=== PATIENT | female | born 1940 | race Caucasian/White ===

== ENCOUNTER 2017-12-05 05:49 | Day surgery (SDC) | payer MEDICARE ==
[2017-12-04 09:47] VITALS: BP 143/75
[2017-12-04 10:00] LABS: BASOPHILS % (AUTO) 0.2 % (0.0-5.0); EOSINOPHILS % (AUTO) 1.7 % (0.0-8.0); LYMPHOCYTES % (AUTO) 16.2 % (21.0-51.0); MEAN CORPUSCULAR HEMOGLOBIN 27.7 pg (27.0-33.0); MEAN CORPUSCULAR HGB CONC 32.9 g/dL (32.0-36.0); MEAN CORPUSCULAR VOLUME 84.3 fL (79-99); MONOCYTES % (AUTO) 8.7 % (3.0-13.0); NEUTROPHILS % (AUTO) 73.2 % (40.0-77.0); PLATELET COUNT (AUTO) 223 K/uL (130-400); RED BLOOD CELL COUNT(AUTO) 4.86 MIL/uL (4.00-5.50); WHITE BLOOD COUNT (AUTO) 6.2 K/uL (4.8-10.8)
[2017-12-04 10:18] LABS: CREATININE 0.9 mg/dL (0.5-1.5); POTASSIUM 4.2 mmol/L (3.5-5.1)
[2017-12-04 10:35] LABS: INR 1.11 (0.85-1.15); PARTIAL THROMBOPLASTIN TIME 29.7 SEC (26.3-35.5); PROTHROMBIN TIME 11.6 SEC (9.6-11.6)
[2017-12-05] VITALS (10 sets, daily range): BP systolic 108–179; BP diastolic 53–74
[~2017-12-05] VITALS: Ht 154.9 cm; Wt 68.0 kg
[~2017-12-05 05:49] MED LIST: APIX5TAB PO; ASPI-555 PO; ATOR-2 PO; CHOL100040 PO; DOCU-116 PO; FAMO40TA7 PO; FLUT16H NASAL; FOLI0.4T2 PO; HYDR25TA PO; KRIL1CAP22 PO; METO50TA18 PO; MONT10TA21 PO; SPIR25TA4 PO; VIT1CAPS5 PO
[2017-12-05] MEDS ORDERED: LIDOCAINE HCL 1% MDV 50ML VIAL ONE (09:30)
[2017-12-05] MEDS ORDERED: MEPERIDINE-PF 25 MG/ML SYG ONE (09:55)
[2017-12-05] MEDS ORDERED: MIDAZOLAM HCL 1 MG/ML 2ML VIAL ONE ×3 (09:55→11:37)
[2017-12-05] MEDS ORDERED: ONDANSETRON HCL 4 MG/2 ML VIAL ONE (10:41)
[2017-12-05] MEDS ORDERED: FENTANYL CITRATE PF 50 MCG/1 ML 2ML VIAL ONE ×2 (10:42→11:37)
[2017-12-05] MEDS ORDERED: HYDRALAZINE HCL 20 MG/ML VIAL IV PRN (13:45)
== END 2017-12-05 15:30 | disposition home or self-care (01) ==
LOC: DAH 05:49
PROVIDERS: ATTEND Internal Medicine Cardiovascular Disease
DX: I48.3 Typical atrial flutter (principal); I21.3 ST elevation (STEMI) myocardial infarction of unspecified site; E78.5 Hyperlipidemia, unspecified; I10 Essential (primary) hypertension; J45.909 Unspecified asthma, uncomplicated; Z79.01 Long term (current) use of anticoagulants; Z95.5 Presence of coronary angioplasty implant and graft
CPT/HCPCS: 36415; 80048; 85025; 85610; 85730; 93613; 93621; 93653; A4606; A4649; C1730; C1732; C1893; C1894 ×2; J1644; J2250 ×3; J2405; J3010 ×2; J3490; 99152; 99153; J2175

== ENCOUNTER 2018-10-30 08:39 | Day surgery (SDC) | payer MEDICARE ==
[2018-10-28 09:51] VITALS: BP 166/61
[2018-10-28 09:51] LABS: BASOPHILS % (AUTO) 0.2 % (0.0-5.0); EOSINOPHILS % (AUTO) 1.6 % (0.0-8.0); HEMATOCRIT 41.7 % (36-48); LYMPHOCYTES % (AUTO) 14.9 % (21.0-51.0); MEAN CORPUSCULAR HEMOGLOBIN 28.9 pg (27.0-33.0); MEAN CORPUSCULAR HGB CONC 33.2 g/dL (32.0-36.0); MEAN CORPUSCULAR VOLUME 87.2 fL (79-99); MONOCYTES % (AUTO) 7.6 % (3.0-13.0); NEUTROPHILS % (AUTO) 75.7 % (40.0-77.0); NUCLEATED RED BLOOD CELLS 0.1 % (0.0-0.19); PLATELET COUNT (AUTO) 253 K/uL (130-400); RED BLOOD CELL COUNT(AUTO) 4.78 MIL/uL (4.00-5.50); RED CELL DISTRIBUTION WIDTH 13.5 % (11.0-15.5); WHITE BLOOD COUNT (AUTO) 7.2 K/uL (4.8-10.8)
[2018-10-28 09:51] LABS: APPEARANCE,URINE Clear (CLEAR); BILIRUBIN,URINE Negative (NEGATIVE); COLOR,URINE Yellow (YELLOW); GLUCOSE, URINE (UA) Negative (NEGATIVE); KETONES,URINE Trace mg/dL (NEGATIVE); LEUKOCYTE ESTERASE ,URINE Moderate (NEGATIVE); NITRATE,URINE Negative (NEGATIVE); OCCULT BLOOD,URINE Negative (NEGATIVE); PROTEIN,URINE Negative (NEGATIVE)
[2018-10-28 09:56] LABS: CREATININE 1.1 mg/dL (0.5-1.5); POTASSIUM 4.6 mmol/L (3.5-5.1)
[2018-10-28 10:01] LABS: BACTERIA,URINE Rare /HPF (None Seen); RBC,URINE 0-1 /HPF (0-1); SQUAMOUS EPITHELIAL CELL,UR Rare /HPF (0-2); WBC,URINE 0-1 /HPF (0-1)
[2018-10-28 10:02] LABS: MUCUS,URINE Rare LPF (None Seen)
[2018-10-28 10:08] LABS: INR 1.04 (0.85-1.15); PARTIAL THROMBOPLASTIN TIME 27.8 SEC (26.3-35.5); PROTHROMBIN TIME 10.9 SEC (9.6-11.6)
--- NOTE | 2018-10-29 09:55 | NUR ---
ABNORMAL URINALYSIS REPORTED TO CECILIA MONTENEGRO PT'S UA NITRATES NEGATIVE, ULEUKEST MODERATE. NO FURTHER ORDERS.
[2018-10-30] VITALS (11 sets, daily range): BP systolic 129–165; BP diastolic 42–76
[~2018-10-30] VITALS: Ht 154.9 cm; Wt 72.1 kg
[~2018-10-30 08:39] MED LIST changes: -APIX5TAB PO; -ATOR-2 PO; -FOLI0.4T2 PO; +FOLIC ACID PO; +ISOS20TA7 PO; +LANTANOPROST OP; +ROSU20TA30 PO; -SPIR25TA4 PO; +SPIR25TA6 PO
[2018-10-30] MEDS ORDERED: BIVALIRUDIN 250 MG/VIAL IV ONE (13:45)
[2018-10-30] MEDS ORDERED: IOHEXOL-350 50ML VIAL IV ONE (13:46)
[2018-10-30] MEDS ORDERED: IOHEXOL 350 MG/ML 100ML INFUS..BTL IV ONE (13:46)
[2018-10-30] MEDS ORDERED: NITROGLYCERIN 5 MG/ML 10 ML VIAL IV ONE (13:46)
[2018-10-30] MEDS ORDERED: LIDOCAINE HCL 2% 20ML ONE (13:46)
[2018-10-30] MEDS ORDERED: SODIUM CHLORIDE 0.9% 1000ML 1,000 ML IV SCH (15:01)
--- NOTE | 2018-10-30 18:15 | NUR ---
PAGED DR. GREEN TO CLARIFY ORDER. DR. GREEN IMMEDIATELY RETURNED PHONE CALL. DR. GREEN HAD CHECKED OFF TO CONTINUE ISOSORBIDE ON BLUE MEDICATION RECONCILIATION PAPER, HOWEVER HAD ORDERED TO STOP IT IN [facility]. DR. GREEN CONFIRMED VIA TELEPHONE ORDER THAT THE PT WAS TO STOP TAKING ISOSORBIDE. PT ALSO INFORMED TO STOP TAKING MEDICATION.
--- NOTE | 2018-10-30 19:15 | NUR ---
PT DISCHARGED HOME, TOLERATING FLUIDS, SOLID FOOD WELL, AMBULATING WELL. DENIES ANY PAIN, NAUSEA OR DIZZINESS. RIGHT GROIN CATH SITE REMAINS SOFT, NON-TENDER, WITHOUT SIGNS OF BLEEDING, WITH SIGNS OF GOOD PERIPHERAL PERFUSION. REINFORCED TO PT ROUTINE AND EMERGENCY CARE OF CATH SITE. INFORMED PT TO STOP TAKING ISOSORBIDE. PT AND SPOUSE REPORT NO FURTHER QUESTIONS AT THIS TIME. PT AND SPOUSE INSTRUCTED TO CALL DR. GREEN'S OFFICE OF DAY PT WITH ANY FURTHER QUESTIONS.
== END 2018-10-30 19:15 | disposition home or self-care (01) ==
LOC: DAH 08:39
PROVIDERS: ATTEND Internal Medicine Cardiovascular Disease
DX: I25.118 Atherosclerotic heart disease of native coronary artery with other forms of angina pectoris (principal); Z95.5 Presence of coronary angioplasty implant and graft; I21.3 ST elevation (STEMI) myocardial infarction of unspecified site; E78.5 Hyperlipidemia, unspecified; Z68.30 Body mass index [BMI] 30.0-30.9, adult; Z79.899 Other long term (current) drug therapy; Z79.01 Long term (current) use of anticoagulants; J45.909 Unspecified asthma, uncomplicated; I48.92 Unspecified atrial flutter; I11.9 Hypertensive heart disease without heart failure; Z98.890 Other specified postprocedural states; Z98.49 Cataract extraction status, unspecified eye
CPT/HCPCS: 36415; 71045; 80048; 81001; 85025; 85610; 85730; 93005; 93458; A4606; C1760 ×2; C1894; J1644; J3490 ×2; Q9965; Q9967 ×2; J0583

== ENCOUNTER 2021-10-24 07:53 | Day surgery (SDC) | payer MEDICARE ==
[2021-10-20 09:19] LABS: BASOPHILS % (AUTO) 0.2 % (0.0-5.0); EOSINOPHILS % (AUTO) 3.5 % (0.0-8.0); HEMATOCRIT 41.2 % (36-48); LYMPHOCYTES % (AUTO) 16.3 % (21.0-51.0); MEAN CORPUSCULAR HEMOGLOBIN 27.9 pg (27.0-33.0); MEAN CORPUSCULAR VOLUME 87.1 fL (79-99); MONOCYTES % (AUTO) 8.8 % (3.0-13.0); NEUTROPHILS % (AUTO) 70.8 % (40.0-77.0); PLATELET COUNT (AUTO) 224 K/uL (130-400); RED BLOOD CELL COUNT(AUTO) 4.73 MIL/uL (4.00-5.50); RED CELL DISTRIBUTION WIDTH 13.7 % (11.0-15.5); WHITE BLOOD COUNT (AUTO) 8.1 K/uL (4.8-10.8)
[2021-10-20 09:28] LABS: POTASSIUM 3.5 mmol/L (3.5-5.1)
[2021-10-20 09:32] LABS: INR 1.17 (0.85-1.15); PROTHROMBIN TIME 12.6 SEC (9.6-11.6)
[2021-10-20 09:32] LABS: APPEARANCE,URINE Clear (CLEAR); BILIRUBIN,URINE Negative (NEGATIVE); COLOR,URINE Yellow (YELLOW); GLUCOSE, URINE (UA) Negative (NEGATIVE); KETONES,URINE Negative (NEGATIVE); LEUKOCYTE ESTERASE ,URINE Moderate (NEGATIVE); NITRATE,URINE Negative (NEGATIVE); OCCULT BLOOD,URINE Negative (NEGATIVE); PH,URINE 5.5 (5.0-8.0); PROTEIN,URINE Negative (NEGATIVE); UROBILINOGEN,URINE 0.2 mg/dL (0.2-1.0)
[2021-10-20 09:33] LABS: PARTIAL THROMBOPLASTIN TIME 29.9 SEC (26.3-35.5)
[2021-10-20 09:47] LABS: RBC,URINE 0-1 /HPF (0-1)
[2021-10-20 09:48] LABS: BACTERIA,URINE Few /HPF (None Seen); SQUAMOUS EPITHELIAL CELL,UR Rare /HPF (0-2)
[2021-10-23 10:50] VITALS: BP 141/71
[2021-10-24] VITALS (10 sets, daily range): BP systolic 123–158; BP diastolic 49–67
[~2021-10-24] VITALS: Ht 154.9 cm; Wt 72.0 kg
[~2021-10-24 07:53] MED LIST changes: -ASPI-555 PO; +ASPI-556 PO; +CARV25TA PO; +CHLO25TA3 PO; -DOCU-116 PO; +EZET10TA48 PO; -FAMO40TA7 PO; -FLUT16H NASAL; -HYDR25TA PO; -ISOS20TA7 PO; -KRIL1CAP22 PO; -METO50TA18 PO; -MONT10TA21 PO; +PANT20TA18 PO; -ROSU20TA30 PO; +ROSU20TA31 PO; +SERT-439 PO; -VIT1CAPS5 PO
[2021-10-24] MEDS ORDERED: 0.9%NACL 1000ML 1,000 ML IV ONE (09:16)
[2021-10-24] MEDS ORDERED: SODIUM BICARB 50MEQ 50ML VIAL 50 ML ONE (10:19)
[2021-10-24] MEDS ORDERED: IOHEXOL-350 75 ML VIAL IV ONE (10:21)
[2021-10-24] MEDS ORDERED: LIDOCAINE HCL 400MG/20ML VIAL ONE (10:21)
[2021-10-24] MEDS ORDERED: IOHEXOL-350 50ML VIAL IV ONE (10:21)
[2021-10-24] MEDS ORDERED: HEPARIN 10,000 UNIT/10ML (1,000 UNIT/ML) VIAL ONE (10:21)
[2021-10-24] MEDS ORDERED: NITROGLYCERIN 50MG VIAL ONE (10:23)
[2021-10-24] MEDS ORDERED: NICARDIPINE 25MG INJ IV ONE (10:23)
[2021-10-24] MEDS ORDERED: MIDAZOLAM HCL 1 MG/ML 2ML VIAL ONE (10:36)
[2021-10-24] MEDS ORDERED: FENTANYL CITRATE PF 50 MCG/1 ML 2ML VIAL ONE (10:37)
[2021-10-24] MEDS ORDERED: 0.9%NACL 1000ML 1,000 ML IV SCH (12:00)
== END 2021-10-24 16:05 | disposition home or self-care (01) ==
LOC: DAH 07:53
PROVIDERS: ATTEND Internal Medicine Cardiovascular Disease
DX: I25.119 Atherosclerotic heart disease of native coronary artery with unspecified angina pectoris (principal); I27.20 Pulmonary hypertension, unspecified; I11.0 Hypertensive heart disease with heart failure; I50.32 Chronic diastolic (congestive) heart failure; I25.2 Old myocardial infarction; E78.5 Hyperlipidemia, unspecified; J45.909 Unspecified asthma, uncomplicated; E11.9 Type 2 diabetes mellitus without complications; E66.3 Overweight; Z79.82 Long term (current) use of aspirin; Z79.01 Long term (current) use of anticoagulants; Z79.899 Other long term (current) drug therapy; Z68.29 Body mass index [BMI] 29.0-29.9, adult; Z95.5 Presence of coronary angioplasty implant and graft; Z90.89 Acquired absence of other organs; Z98.51 Tubal ligation status; Z98.890 Other specified postprocedural states; Z90.49 Acquired absence of other specified parts of digestive tract; Z98.49 Cataract extraction status, unspecified eye; Z72.89 Other problems related to lifestyle; Z82.49 Family history of ischemic heart disease and other diseases of the circulatory system
CPT/HCPCS: 36415; 71045; 80048; 81001; 85025; 85610; 85730; 87088; 93005; 93460; A4215; A4216; A4221; A4222; A4223 ×3; A4335; A4606; A4663; C1760; C1769; C1894 ×2; J2250; J3010; J3490 ×2; J7030 ×2; Q9967 ×2; 99156; 99157; J1644